=== PATIENT | female | born 1995 | race Caucasian/White ===

== ENCOUNTER 2019-12-12 21:26 | Emergency (ER) | payer OTHER ==
[~2019-12-12] VITALS: Ht 152.4 cm; Wt 79.4 kg
[2019-12-12 21:26] VITALS: BP_SYST 129
--- NOTE | 2019-12-12 21:26 | NUR ---
Patient to ER bed 6 to gown for evaluation. Side rails up. Assumed care of patient.
--- NOTE | 2019-12-12 21:26 | NUR ---
PT ARRIVED PRIVATE AUTO C/O NOSE BLEED THAT CAME ON SUDDENLY UNPROVOKED. PT AAO AND AMBULATORY. PT REPORTS FEELING PRESSURE IN HER HEAD THEN A NOSE BLEED THAT FOLLOWED AND LASTED FOR APPROXIMATELY 5 MINUTES. PT REPORTS THIS HAS HAPPENED IN THE PAST. BLEEDING HAD STOPPED AT HOME BUT IT CAUSED HER CONCERN SO WANTED AN EVAL BY .
--- NOTE | 2019-12-12 21:45 | NUR ---
ER Dr. FISHER at bedside examining patient.
--- NOTE | 2019-12-12 22:00 | NUR ---
PT AWAITING DISPOSITION. PT RESTING COMFORTABLY WITH NO SIGN OF DISTRESS.
--- NOTE | 2019-12-12 22:30 | NUR ---
Patient given written and verbal discharge instructions and verbalizes understanding. MABEL FISHER MD discussed with patient the results and treatment provided. Patient in stable condition. ID arm band removed. Patient educated on pain management and to follow up with PMD. Pain Scale 0. Opportunity for questions provided and answered.
[2019-12-12 22:36] VITALS: BP_SYST 129
== END 2019-12-12 22:36 | disposition home or self-care (01) ==
LOC: SED 21:26
DX: R04.0 Epistaxis (principal)
CPT/HCPCS: 99281